=== PATIENT | female | born 1930 | race Caucasian/White ===

== ENCOUNTER → 2017-01-26 | Outpatient (CLI) | payer MEDICARE ==
[~2017-01-26] VITALS: Ht 152.4 cm; Wt 53.9 kg
[~2017-01-26] MED LIST: ASPI-496 PO; CHOL10002 PO; LACTATED RINGERS 1,000 ML IV SCH; LIDOCAINE 1%, 2ML ONE; LIDOCAINE 1%, 2ML SQ PRN; LOSA100T6 PO; METO50TA82 PO; METOPROLOL TARTRATE 50 MG TABLET PO ONE; SIMV40TA3 PO
[2017-01-26 08:19] LABS: ASPARTATE AMINO TRANSFERASE 16 U/L (15-37); BLOOD UREA NITROGEN 17 mg/dL (7-18)
[2017-01-26 08:38] VITALS: BP 191/84
== END | disposition home or self-care (01) ==
LOC: OUT 07:00 → EDSTATUS 09:00 → OUT 09:05
PROVIDERS: ATTEND Urology
DX: Z01.818 Encounter for other preprocedural examination (principal); R94.31 Abnormal electrocardiogram [ECG] [EKG]; D41.02 Neoplasm of uncertain behavior of left kidney; R79.1 Abnormal coagulation profile
CPT/HCPCS: 36415; 80053; 85610; 93005; J3490; J7120

== ENCOUNTER → 2017-06-15 | Outpatient (CLI) | payer MEDICARE ==
[~2017-06-15] MED LIST changes: -LACTATED RINGERS 1,000 ML IV SCH; -LIDOCAINE 1%, 2ML ONE; -LIDOCAINE 1%, 2ML SQ PRN; -METOPROLOL TARTRATE 50 MG TABLET PO ONE
== END | disposition home or self-care (01) ==
LOC: CFH 08:47
PROVIDERS: ATTEND Urology
DX: D41.02 Neoplasm of uncertain behavior of left kidney (principal)
CPT/HCPCS: 82565

== ENCOUNTER 2018-02-08 15:43 | Emergency (ER) | payer MEDICARE ==
[~2018-02-08] VITALS: Ht 149.9 cm; Wt 62.0 kg
[~2018-02-08 15:43] MED LIST changes: -LOSA100T6 PO; +LOSA100T7 PO
[2018-02-08] MEDS ORDERED: LIDOCAINE-MPF 1%, 5ML INFIL ONE (16:30)
--- NOTE | 2018-02-08 17:01 | NUR ---
BREAK RN: PT IN RADIOLOGY AT THIS TIME. PT TO BE TAKEN TO ROOM ONCE COMPLETED.
--- NOTE | 2018-02-08 17:11 | NUR ---
PT TAKEN TO RAD. WILL ASSESS UPON RETURN TO ROOM
[2018-02-08 17:46] VITALS: BP 207/86
--- NOTE | 2018-02-08 18:05 | NUR ---
MD TO BEDSIDE TO UPDATE PT AND FAMILY ON POC
[2018-02-08] MEDS ORDERED: ACETAMINOPHEN 500 MG TABLET ONE (18:14)
--- NOTE | 2018-02-08 18:18 | NUR ---
PT MEDICATED PER APR FOR PAIN. TECH AT BEDSIDE TO PLACE SPLINT.
[2018-02-08] MEDS ORDERED: ACETAMINOPHEN 325 MG TABLET PO ONE (18:30)
== END 2018-02-08 18:37 | disposition home or self-care (01) ==
LOC: ED 17:58
DX: S09.90XA Unspecified injury of head, initial encounter (principal); S52.224A Nondisplaced transverse fracture of shaft of right ulna, initial encounter for closed fracture; S52.201A Unspecified fracture of shaft of right ulna, initial encounter for closed fracture; Z95.5 Presence of coronary angioplasty implant and graft; W22.8XXA Striking against or struck by other objects, initial encounter; Y93.89 Activity, other specified; Y92.009 Unspecified place in unspecified non-institutional (private) residence as the place of occurrence of the external cause; Y99.8 Other external cause status
CPT/HCPCS: 12011; 29125; 70450; 70486; 99284